=== PATIENT | male | born 1990 | race Two or more races ===

== ENCOUNTER 2017-01-02 15:11 | Observation (INO) | payer SELFPAY ==
[2017-01-02] MEDS ORDERED: PHENERGAN INJ 25 MG IVP PRN ×2 (15:36→17:02)
[2017-01-02] MEDS ORDERED: ZOFRAN INJ 4 MG VIAL IVP PRN (15:36)
[2017-01-02] MEDS ORDERED: LEVSIN/MAALOX/LIDOC VISC PO PRN (15:38)
[2017-01-02] MEDS ORDERED: NORCO 10/325 TAB PO PRN (15:39)
--- NOTE | 2017-01-02 16:37 | RAD ---
HISTORY: Chest and abdominal pain. Acute abdominal series. Findings: The trachea is midline. The cardiac silhouette is unremarkable. The lungs are clear without focal infiltrate or effusion. The bony thorax is unremarkable. Flat plate and upright evaluation of the abdomen demonstrates a nonspecific and nonobstructive bowel gas pattern. No free peritoneal air is seen. No pathological soft tissue abdominal mass effect or f ocal calcification can be observed. The bony structures are grossly intact. IMPRESSION: 1. No acute cardiopulmonary disease. 2. No evidence for acute abdominal pathology. 3. Large quantity of colonic stool observed. Reported By:
[2017-01-02 16:58] LABS: BASOPHILS % (AUTO) 0.6 % (0.2-1.0); EOSINOPHILS # (AUTO) 0.3 x10^3/uL (0.0-0.2); EOSINOPHILS % (AUTO) 5.5 % (0.9-2.9); HEMATOCRIT 42.9 % (42.0-54.0); HEMOGLOBIN 14.5 g/dL (13.5-18.0); LYMPHOCYTES # (AUTO) 2.2 X10^3/uL (1.3-2.9); LYMPHOCYTES % (AUTO) 38.8 % (21.0-51.0); MEAN CORPUSCULAR HEMOGLOBIN 28.5 pg (27.0-34.0); MEAN CORPUSCULAR HGB CONC 33.9 g/dL (33.0-35.0); MEAN CORPUSCULAR VOLUME 84.1 fL (80.0-100.0); MEAN PLATELET VOLUME 8.4 fL (7.4-11.0); MONOCYTES # (AUTO) 0.4 x10^3/uL (0.3-0.8); MONOCYTES % (AUTO) 7.4 % (0.0-13.0); NEUTROPHILS # (AUTO) 2.8 x10^3/uL (2.2-4.8); NEUTROPHILS % (AUTO) 47.7 % (42.0-75.0); PLATELET COUNT 254 X10^3/uL (150.0-450.0); RED CELL DISTRIBUTION WIDTH 12.7 % (11.6-16.5); WHITE BLOOD COUNT 5.8 X10^3/uL (3.6-10.0)
--- NOTE | 2017-01-02 17:00 | DR.H&P ---
H&P - History & Physical for Day of: H&P Date: 01/02/17 - Chief Complaint Chief Complaint: ABDOMINAL PAIN, DIARRHEA, FEVER, BLOOD IN STOOL - Allergies Allergies/Adverse Reactions: Allergies Allergy/AdvReac Type Severity Reaction Status Date / Time No Known Drug Allergy Allergy Verified 01/02/17 16:24 - History of Present Illness History of Present Illness: 26 MALE ADMITTED FROM [address] CHIN OFFICE WITH CO RLOWER ABDOMINAL PAIN AND LOW GRADE FEVER. PT HAS HAD PAIN FOR 2 WEEKS. PT WAS SEEN 2 WEEKS AGO WITH LABS AND TREATMENT WITH CIPRO AND ZANTAC WITHOUT IMPROVEMENT, PT HAS NO KNOWN PMH. PT IS M[employer] WORK[employer], SPEAKS [employer], WORKS AT LOC[employer]. PLAN TO ADMIT OBTAIN STOOL STUDIES, CT ABD PELVIS, IV FLAGYL. - Past Medical History Past Medical History: denies: Alzheimers, Anemia, Angina, Anxiety, Arthritis, Asthma, Cirrhosis, CHF, COPD, Coronary Artery Disease, CVA, Dementia, Depression , Diabetes, Dialysis, Migraines, Dyslipidemia, GERD, Gout, Headaches, Hypertension, Hyperthyroidism, Hypothyroidism, Kidney Stones, Liver Disease, [place] , PUD, Renal Disease, Schizophrenia, Seizures, Sleep Apnea, SVT, Ventricular Tachycardia - Past Surgical History Surgical History: denies: Unknown, No History, AAA Repair, Abdominal Surgery, Angioplasty/Stents, Appendectomy, Bowel Resection, , CABG/Valve Surgery , Carotid Endarterectomy, Cholecystectomy, Ectopic , TIER LIFT TRUCK OPERATOR Surgery, Hysterectomy, Joint Replacement, Mastectomy, Neurosurgery, Organ Transplant, Ortho Surgery, Spleenectomy, Thyroidectomy, Tonsillectomy, TURP, Weight Loss Surgery, Lithotripsy, Other - Family History Family Medical History: Hypertension. denies: Diabetes Mellitus, Coronary Artery Disease - Social History Does patient currently use any type of tobacco product: No Have you used tobacco products in the last 12 months: No Type of Tobacco Use: Cigarettes Does any household member use tobacco: No Alcohol Use: Rarely Drug Use: None - Review of Systems Constitutional: Fever Eyes: No Symptoms Reported ENT: No Symptoms Reported Respiratory: No Symptoms Reported Cardiovascular: No Symptoms Reported Gastrointestinal: Nausea, Vomiting, Abdominal Pain, Diarrhea, Melena Genitourinary: No Symptoms Reported Musculoskeletal: No Symptoms Reported Skin: No Symptoms Reported Neurological: No Symptoms Reported Oriented: Normal Eyes: Normal Ear: Normal Nose: Normal Throat: Normal Respiratory: Clear Throughout Cardiovascular: Normal : Normal Auscultation: Bowel Sounds: Normal Palpation: Normal Tenderness: RLQ, LLQ, Suprapubic Skin: Normal Musculoskeletal: Normal Psychiatric: Normal Mood Description: Calm Speech Pattern: Clear - Assessment/Plan (1) Abdominal pain Qualifiers: Abdominal location: A Status: Acute Plan: ADMIT FOR EVALUATION, ADMISSION LABS CBC CMP AMYLASE LIPASE. UA, STOOL STUDIES, ABD SERIES AND CT ABD PELVIS (2) Diarrhea Qualifiers: Diarrhea type: D Status: Acute Plan: IV FLAGYL, IV HYDRATION. REPEAT AM LABS (3) Fever Qualifiers: Fever type: F Encounter type: E Status: Acute (4) GERD (gastroesophageal reflux disease) Qualifiers: Esophagitis presence: E Status: Acute
[2017-01-02 17:05] LABS: ALANINE AMINOTRANSFERASE 30 Units/L (12-78); ALBUMIN 4.3 g/dL (3.4-5.0); ALKALINE PHOSPHATASE 78 Units/L (46-116); AMYLASE 63 Units/L (25-115); ASPARTATE AMINO TRANSFERASE 19 Units/L (15-37); BLOOD UREA NITROGEN 12 mg/dL (7-18); CALCIUM 8.9 mg/dL (8.5-10.1); CARBON DIOXIDE 29.2 mmol/L (21-32); CHLORIDE 107 mmol/L (98-107); GLUCOSE 92 mg/dL (65-99); LIPASE 96 Units/L (73-393); SODIUM 144 mmol/L (136-145); TOTAL PROTEIN 7.5 g/dL (6.4-8.2); eGFR BLACK RACES > 60 (>60); eGFR NON BLACK RACES > 60 (>60)
[2017-01-02] MEDS: FLAGYL IV PREMIX 500 MG BAG 500 MG/100 ML BAG IV SCH ×2 (18:01→22:33)
[2017-01-02] MEDS: PROTONIX INJ 40 MG VIAL IVP SCH (18:01)
[2017-01-02] MEDS: NS 1000 ML 1,000 ML IV SCH (18:02)
[2017-01-02] MEDS: MILK OF MAGNESIA PO SCH ×2 (18:26→22:32)
[2017-01-02 18:48] LABS: BILIRUBIN,URINE NEGATIVE (NEGATIVE); BLOOD/HEMOGLOBIN,URINE NEGATIVE (NEGATIVE); GLUCOSE, URINE NEGATIVE (NEGATIVE); KETONES,URINE NEGATIVE (NEGATIVE); LEUKOCYTE ESTERASE ,URINE NEGATIVE (NEGATIVE); NITRITES,URINE NEGATIVE (NEGATIVE); PROTEIN,URINE NEGATIVE (NEGATIVE); UROBILINOGEN,URINE NORMAL (NORMAL)
[2017-01-02 19:09] LABS: AMORPHOUS SEDIMENT,UR 2+ /HPF (NEGATIVE); APPEARANCE,URINE CLEAR (CLEAR); BACTERIA,URINE 2+ /HPF (NEGATIVE); COLOR,URINE YELLOW (YELLOW); RBC,URINE NONE SEEN /HPF (NEGATIVE); SQUAMOUS EPITHELIAL CELL,UR RARE /HPF (NEGATIVE)
[2017-01-02 21:15] LABS: GIARDIA LAMBLIA ANTIGEN NEGATIVE (NEGATIVE)
[2017-01-02 21:16] LABS: CRYPTOSPORIDIUM PARVUM ANTIGEN NEGATIVE (NEGATIVE)
[2017-01-02 22:01] VITALS: BMI 22.1
[2017-01-03] MEDS: FLAGYL IV PREMIX 500 MG BAG 500 MG/100 ML BAG IV SCH ×2 (04:50→09:06)
[2017-01-03] MEDS ORDERED: NS 100 ML IV 100 ML IV ONE (05:46)
[2017-01-03] MEDS: NS 1000 ML 1,000 ML IV SCH (05:47)
--- NOTE | 2017-01-03 07:10 | CT ---
HISTORY: Abdominal pain Study: CT abdomen pelvis with contrast Comparison: None Technique: Axial post-contrast images with coronal and sagittal reformats. Dose reduction procedures were use with MA/kv adjusted for body size. Findings: The lung bases are clear. The liver, spleen, adrenal glands, and pancreas are within normal limits. No opaque stones are visible within the gallbladder. The kidneys are unobstructed and without stones or masses. No ureteral calculi are identified. The appendix is normal. There are no findings sugges tive of diverticulitis or colitis. No enlarged intraperitoneal or retroperitoneal lymphadenopathy is identified. Examination of the pelvis demonstrated no evidence for pelvic masses, pelvic fluid, or pelvic lymphadenopathy. No significant skeletal abnormality is identified. IMPRESSION: No significant abnormality identified Reported By:
[2017-01-03] MEDS: PROTONIX INJ 40 MG VIAL IVP SCH (09:07)
[2017-01-03 10:13] VITALS: BP 93/55
[2017-01-03] MEDS ORDERED: ZOSYN VIAL 4.5 GM 4.5 GM in NS 100 ML IV + SPIKE MINIBAG* 100 ML IV SCH (11:00)
[2017-01-03] MEDS: MILK OF MAGNESIA PO SCH ×2 (11:51→13:42)
--- NOTE | 2017-01-03 16:24 | PCM.DCPLAN ---
Discharge Summary - Admission Date Date of Admission: 01/02/17 - Discharge Date Discharge Date: 01/03/17 - Admission Diagnoses (1) Abdominal pain Status: Acute (2) Diarrhea Status: Acute (3) Fever Status: Acute (4) GERD (gastroesophageal reflux disease) Status: Acute - Discharge Diagnoses Discharge Diagnosis: SAME ADMISSION - Discharge Medications Discharge Medications: Ciprofloxacin HCl [CIPRO 500 MG TAB *] 1 tab PO BID 01/02/17 [History] Ranitidine HCl [Zantac] 1 tab PO HS 01/02/17 [History] - Hospital Course Vital Signs: Temperature 97.6 F Pulse Rate [Apical] 63 Respiratory Rate 20 Blood Pressure [Right Arm] 93/55 O2 Sat by Pulse Oximetry 97 Latest Lab Results: Laboratory Last Values WBC 5.8 X10^3/uL (3.6-10.0) 01/02/17 16:35 RBC 5.10 X10^6/uL (4.7-6.0) 01/02/17 16:35 Hgb 14.5 g/dL (13.5-18.0) 01/02/17 16:35 Hct 42.9 % (42.0-54.0) 01/02/17 16:35 MCV 84.1 fL (80.0-100.0) 01/02/17 16:35 MCH 28.5 pg (27.0-34.0) 01/02/17 16:35 MCHC 33.9 g/dL (33.0-35.0) 01/02/17 16:35 RDW 12.7 % (11.6-16.5) 01/02/17 16:35 Plt Count 254 X10^3/uL (150.0-450.0) 01/02/17 16:35 MPV 8.4 fL (7.4-11.0) 01/02/17 16:35 Neut % 47.7 % (42.0-75.0) 01/02/17 16:35 Lymph % 38.8 % (21.0-51.0) 01/02/17 16:35 [place] % 7.4 % (0.0-13.0) 01/02/17 16:35 Eos % 5.5 % (0.9-2.9) H 01/02/17 16:35 Baso % 0.6 % (0.2-1.0) 01/02/17 16:35 Neut # 2.8 x10^3/uL (2.2-4.8) 01/02/17 16:35 Lymph # 2.2 X10^3/uL (1.3-2.9) 01/02/17 16:35 [place] # 0.4 x10^3/uL (0.3-0.8) 01/02/17 16:35 Eos # 0.3 x10^3/uL (0.0-0.2) H 01/02/17 16:35 Baso # 0.0 X10^3/uL (0.0-0.1) 01/02/17 16:35 Absolute Nucleated RBC 0.1 /100WBC 01/02/17 16:35 Sodium 144 mmol/L (136-145) 01/02/17 15:35 Corrected Sodium TNP 01/02/17 15:35 Potassium 3.8 mmol/L (3.5-5.1) 01/02/17 15:35 Chloride 107 mmol/L (98-107) 01/02/17 15:35 Carbon Dioxide 29.2 mmol/L (21-32) 01/02/17 15:35 BUN 12 mg/dL (7-18) 01/02/17 15:35 Creatinine 0.80 mg/dL (0.70-1.30) 01/02/17 15:35 Est GFR (MDRD) Af Amer > 60 (>60) 01/02/17 15:35 Est GFR (MDRD) Non-Af > 60 (>60) 01/02/17 15:35 Glucose 92 mg/dL (65-99) 01/02/17 15:35 Calcium 8.9 mg/dL (8.5-10.1) 01/02/17 15:35 Corrected Calcium TNP 01/02/17 15:35 Total Bilirubin 0.30 mg/dL (0.2-1.0) 01/02/17 15:35 AST 19 Units/L (15-37) 01/02/17 15:35 ALT 30 Units/L (12-78) 01/02/17 15:35 Alkaline Phosphatase 78 Units/L (46-116) 01/02/17 15:35 Total Protein 7.5 g/dL (6.4-8.2) 01/02/17 15:35 Albumin 4.3 g/dL (3.4-5.0) 01/02/17 15:35 Globulin 3.2 g/dL (2.5-4.5) 01/02/17 15:35 Albumin/Globulin Ratio 1.3 Ratio (1.1-2.1) 01/02/17 15:35 Amylase 63 Units/L (25-115) 01/02/17 15:35 Lipase 96 Units/L (73-393) 01/02/17 15:35 Specimen Type Clean catch urine 01/02/17 18:40 Urine Color Yellow (YELLOW) 01/02/17 18:40 Urine Appearance Clear (CLEAR) 01/02/17 18:40 Urine pH 7.0 (5.0 - 8.0) 01/02/17 18:40 Ur Specific [place] 1.010 (1.000-1.030) 01/02/17 18:40 Urine Protein Negative (NEGATIVE) 01/02/17 18:40 Urine Glucose (UA) Negative (NEGATIVE) 01/02/17 18:40 Urine Ketones Negative (NEGATIVE) 01/02/17 18:40 Urine Occult Blood Negative (NEGATIVE) 01/02/17 18:40 Urine Nitrite Negative (NEGATIVE) 01/02/17 18:40 Urine Bilirubin Negative (NEGATIVE) 01/02/17 18:40 Urine Urobilinogen Normal (NORMAL) 01/02/17 18:40 Ur Leukocyte Esterase Negative (NEGATIVE) 01/02/17 18:40 Urine RBC None seen /HPF (NEGATIVE) 01/02/17 18:40 Urine WBC None seen /HPF (NEGATIVE) 01/02/17 18:40 Ur Squamous Epith Cells Rare /HPF (NEGATIVE) 01/02/17 18:40 Amorphous Sediment 2+ /HPF (NEGATIVE) 01/02/17 18:40 Urine Bacteria 2+ /HPF (NEGATIVE) 01/02/17 18:40 Ur Culture Indicated? No/not indicated 01/02/17 18:40 Stool Description 153grms,browm,form 01/02/17 18:40 Stl Occult Blood (IFOB) Negative (NEGATIVE) 01/02/17 18:40 Stool for White Cells No wbc's seen (None) 01/02/17 18:40 Cryptosporid parvum Ag Negative (NEGATIVE) 01/02/17 18:40 E. histolytica Antigen Negative (NEGATIVE) 01/02/17 18:40 Giardia lamblia Ag Negative (NEGATIVE) 01/02/17 18:40 Hospital Course: 26-YEAR-OLD MALE WHO WAS ADMITTED ONE DAY FROM dR. Whitman'S OFFICE WITH COMPLAINTS OF LOWER ABDOMINAL PAIN, AND DIARRHEA. pATIENT WAS SEEN IN THE OFFICE APPROXIMATELY 2 WEEKS AGO AND STARTED ON cIPRO AND zANTAC WITHOUT IMPROVEMENT PATIENT STATES HE'S HAD A LOW-GRADE FEVER AND WAKES UP DURING THE NIGHT WITH DIARRHEA. iT HAD AN ABDOMINAL SERIES ON ADMISSION WHICH REVEALED CONSTIPATION PATIENT PATIENT WAS SUBSEQUENTLY TREATED WITH MILK OF MAGNESIA 4 DOSES. pATIENT WAS GIVEN iv NORMAL SALINE AND STARTED ON iv ANTIBIOTICS fLAGYL AND cIPRO. pATIENT'S cbc ON ADMISSION WAS WITHIN NORMAL RANGE AND CHEMISTRY AMYLASE AND LIPASE WERE ALSO STABLE. pATIENT HAD A ct SCAN OF HIS ABDOMEN AND PELVIS WITH CONTRAST THIS A.M. WHICH REVEALED NO ACUTE FINDINGS. pATIENT STATED AFTER HAVING MULTIPLE BOWEL MOVEMENTS HE FELT MUCH BETTER AND WANTED TO GO HOME AND PATIENT WAS DISCHARGED HOME TO RESUME HIS zANTAC ONLY AND FOLLOW-UP WITH HIS PRIMARY CARE IN 1 WEEK. pATIENT INSTRUCTED TO EAT A HIGH-FIBER DIET AND INCREASED WATER INTAKE - Discharge Plan Disposition: 01 HOME, SELF-CARE Condition: Stable - Follow ups/Referrals Follow ups/Referrals: ARMANDO BECERRIL [Nurse Practitioner] - 1 WEEK - Instructions Instructions: Nausea and Vomiting, Adult, [id number], Abdominal Pain, Adult, [id number], Diarrhea, Adult, [id number], Fever, Adult, [id number] Forms: Patient Portal
== END 2017-01-03 13:40 | disposition home or self-care (01) ==
LOC: MED/SURG 15:11
PROVIDERS: ADMIT Internal Medicine; ATTEND Internal Medicine
DX: R10.84 Generalized abdominal pain (principal); R19.7 Diarrhea, unspecified; R50.9 Fever, unspecified; K21.9 Gastro-esophageal reflux disease without esophagitis
CPT/HCPCS: 36415; 74022; 74177; 80053; 81001; 82150; 82270; 83690; 85025; 87045; 87205; 87328; 87329; 87336; 87899; A4222; C9113; S0030; G0378